=== PATIENT | female | born 1985 | race Two or more races ===

== ENCOUNTER 2019-10-21 16:59 | Outpatient (CLI) | payer MEDICAID ==
--- NOTE | 2019-10-21 18:28 | Non Stress Test Report ---
Non Stress Test Datetime Report Generated by CPN: 10/21/2019 18:27 DEMOGRAPHIC EGA NST: 39.5 INDICATION Indication for Study (NST) Other: IUP @ 39.5 Labor observation VITAL SIGNS Temperature - NST: 98.3 Pulse - NST: 96 RESP - NST: 16 NBPSYS NST: 110 NBPDIA NST: 73 MONITORING Monitor Explained: Monitor Explained; Test Explained; Patient Verbalized Understanding Time on Monitor: 10/21/2019 17:14 Time off Monitor: 10/21/2019 18:11 NST Duration: 57 NST INTERVENTIONS NST Interventions: PO Hydration; Reposition Patient Physician Notified NST: Dr. Mejía BABY A: [id number] BABY A Movement : Present Contraction Frequency : 1-6 FHR Baseline : 130 Accelerations : 15X15 Decelerations : None Variability : Moderate 6-25bpm NST Review: Meets Criteria for Reactive NST NST Review and Verified By : Margarita Washington RN NST Results: Reactive NST REPORT Report Trigger: Send Report
[2019-10-21 18:44] LABS: APPEARANCE,URINE CLEAR; BILIRUBIN,URINE NEGATIVE (NEGATIVE); COLOR,URINE YELLOW; GLUCOSE, URINE NEGATIVE (NEGATIVE); KETONES,URINE TRACE mg/dL (NEGATIVE); LEUKOCYTE ESTERASE,URINE TRACE (NEGATIVE); NITRITE,URINE NEGATIVE (NEGATIVE); PROTEIN,URINE NEGATIVE (NEGATIVE); URINE SPECIFIC GRAVITY 1.008; UROBILINOGEN,URINE NEGATIVE mg/dL (<2.0)
[2019-10-21 19:01] LABS: URINE AMPHETAMINES SCREEN NEGATIVE; URINE BARBITURATES SCREEN NEGATIVE; URINE BENZODIAZEPINES SCREEN NEGATIVE; URINE COCAINE SCREEN NEGATIVE; URINE MARIJUANA (THC) SCREEN NEGATIVE; URINE METHADONE SCREEN NEGATIVE; URINE PHENCYCLIDINE SCREEN NEGATIVE
== END 2019-10-21 19:09 | disposition home or self-care (01) ==
LOC: LC 16:59
PROVIDERS: ATTEND Obstetrics & Gynecology Gynecology
DX: O47.1 False labor at or after 37 completed weeks of gestation (principal); Z3A.39 39 weeks gestation of pregnancy; Z88.0 Allergy status to penicillin
CPT/HCPCS: 59025; 80307; 81005; 84112

== ENCOUNTER 2019-10-23 04:13 | Inpatient (IN) | payer MEDICAID ==
[2019-10-23 05:18] LABS: APPEARANCE,URINE CLOUDY; BILIRUBIN,URINE NEGATIVE (NEGATIVE); COLOR,URINE YELLOW; GLUCOSE, URINE NEGATIVE (NEGATIVE); KETONES,URINE 80 mg/dL (NEGATIVE); LEUKOCYTE ESTERASE,URINE LARGE (NEGATIVE); NITRITE,URINE NEGATIVE (NEGATIVE); PROTEIN,URINE 30 mg/dL (NEGATIVE); URINE SPECIFIC GRAVITY 1.012; UROBILINOGEN,URINE NEGATIVE mg/dL (<2.0)
[2019-10-23 05:36] LABS: URINE AMPHETAMINES SCREEN NEGATIVE; URINE BARBITURATES SCREEN NEGATIVE; URINE BENZODIAZEPINES SCREEN NEGATIVE; URINE COCAINE SCREEN NEGATIVE; URINE MARIJUANA (THC) SCREEN NEGATIVE; URINE METHADONE SCREEN NEGATIVE; URINE PHENCYCLIDINE SCREEN NEGATIVE
[2019-10-23] MEDS ORDERED: PROMETHAZINE HCL INJ 25 MG/1 ML VIAL ONE (07:59)
[2019-10-23] MEDS ORDERED: NALBUPHINE HCL INJ 10 MG/1 ML AMPULE ONE (07:59)
--- NOTE | 2019-10-23 08:01 | Admission Physical ---
Datetime Report Generated by CPN: 10/23/2019 08:01 CURRENT ADMISSION Chief Complaint: Uterine Contractions Indication for Induction: Not Applicable Admit Impression : Term, Intrauterine ; Active Labor Admit Plan: Admit to Unit; Initiate Labor Protocol ALLERGIES Medication Allergies: Yes Medication Allergies: Penicillins (10/23/2019) Latex: No Latex Allergies Food Allergies: None Environmental Allergies: None OBSTETRICAL HISTORY EDC: 10/23/2019 00:00 : 4 Para: 2 Term: 2 : 0 SAB: 1 IAB: 0 Ectopic: 0 Livin Cesareans: 0 VBACs: 0 Multiple Births: 0 Gestational Diabetes: Yes Rh Sensitization: No Incompetent Cervix: No VIVIANA: No Infertility: No ART Treatment: No Uterine Anomaly: No IUGR: No Hx Previous C/S: No Macrosomia: No Hx Loss/Stillborn: No PIH: No Hx : No Placenta Previa/Abruption: No Depression/PP Depression: No PTL/PROM: No Post Hemorrhage: No Current Procedures: Ultrasound Obstetrical History Comments: G1- viable boy 2008 G2- 2011 G3- viable baby girl G4- Current SEE RECORDS Alcohol: No Marijuana : No Cocaine: No Other Illicit Drugs: No Cigarettes: Never Smoker. [id number] MEDICAL HISTORY Diabetes: Yes Diabetes Type: Gestational Diabetes Blood Transfusion: No Pulmonary Disease (Asthma, TB): No Breast Disease: No Hypertension: No Occupational Psychologist Surgery: No Heart Disease: No Hosp/Surgery: Yes Autoimmune Disorder: No Anesthetic Complications: No Kidney Disease: No Abnormal Pap Smear: No Neuro/Epilepsy: No Psychiatric Disorders: No Other Medical Diseases: No Hepatitis/Liver Disease: No Significant Family History: No Varicosities/Phlebitis: No Trauma/Violence : No Thyroid Dysfunction: No Medical History Comments: childbirth INFECTIOUS HISTORY Gonorrhea: No Genital Herpes: No Chlamydia: No Tuberculosis: No Syphilis: No Hepatitis: No HIV/AIDS Exposure: No Rash or Viral Illness: No HPV: 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 PHYSICAL EXAM General: Normal HEENT: Normal Neurologic: Normal Thyroid: Normal Heart: Normal Lungs: Normal Breast: Normal Back: Normal Abdomen: Normal Genitourinary Exam: Normal Extremities: Normal DTRs: Normal Pelvic Type: Adequate Vital Signs: Reviewed; Within Normal Limits VAGINAL EXAM Dilatation: 6 Effacement: 90 Station: -2 MEMBRANES Pooling: Negative FETUS A EGA: 40.0 Monitoring: External US FHR- Baseline: 140 Variability: Moderate 6-25bpm Accelerations: 15X15 Decelerations: None FHR Category: Category I Estimated Weight (gm): 3800 Presentation: Vertex PLANS FOR LABOR AND DELIVERY Labor and Delivery: None Pain Management: Epidural Feeding Preference: Breast Benefit of Breast Feed Discussed: Yes Circumcision: Yes INFORMED CONSENT Signature: with User ID: Marilee
[2019-10-23] MEDS ORDERED: OXYTOCIN 10 UNIT/ML VIAL ONE (08:06)
[2019-10-23] MEDS ORDERED: LIDOCAINE 1% INJ-PF (10 MG/ML) 30 ML SDV ONE (08:06)
[2019-10-23] MEDS ORDERED: OXYTOCIN/0.9 % SODIUM CHLORIDE 30 UNIT/500 ML RTUINJ ONE ×2 (08:06→13:03)
[2019-10-23] MEDS ORDERED: MISOPROSTOL 0.2 MG TABLET ONE (08:06)
[2019-10-23] MEDS: RINGERS SOLUTION,LACTATED 1,000 ML IV PRN ×2 (08:13→09:21)
[2019-10-23] MEDS ORDERED: BUPIVACAINE HCL 0.25 % INJ/PF (2.5 MG/1 ML) 30 ML VIAL ONE (08:42)
[2019-10-23] MEDS ORDERED: FENTANYL CITRATE INJ/PF 100 MCG/2 ML AMPUL ONE (08:42)
[2019-10-23] MEDS ORDERED: EPHEDRINE SULFATE INJ 50 MG/1 ML AMPULE ONE (08:42)
[2019-10-23] MEDS ORDERED: FENTANYL/BUPIVACAINE/NS/PF 300 MCG/150 ML RTUINJ EPI ONE (08:42)
[2019-10-23 08:44] LABS: ABSOLUTE LYMPHOCYTES (AUTO) 1.2 10^3/uL (0.5-4.7); ABSOLUTE MONOCYTES (AUTO) 0.6 10^3/uL (0.1-1.4); ABSOLUTE NEUT (AUTO) 8.6 10^3/uL (1.7-8.2); BASOPHILS % (AUTO) 0.3 % (0-2); EOSINOPHILS % (AUTO) 0.2 % (0-6); HEMATOCRIT 31.6 % (36.0-47.0); HEMOGLOBIN 10.4 g/dL (12.0-15.5); MEAN CORPUSCULAR HEMOGLOBIN 26.2 pg (27.0-33.4); MEAN CORPUSCULAR VOLUME 79 fl (80-97); MONOCYTES % (AUTO) 6.1 % (3-13); PLATELET COUNT 216 10^3/uL (150-450); RED BLOOD COUNT 3.99 10^6/uL (3.72-5.28); SEGMENTED NEUTROPHILS % (AUTO) 82.4 % (42-78); TOTAL CELLS COUNTED % (AUTO) 100 %; WHITE BLOOD COUNT 10.5 10^3/uL (4.0-10.5)
[2019-10-23] MEDS ORDERED: ROPIVACAINE HCL 0.2% INJ/PF (2 MG/ML) 20 ML SDV ONE (08:45)
[2019-10-23] MEDS ORDERED: PHENYLEPHRINE HCL INJ/PF 10 MG/1 ML SDV ONE (09:28)
[2019-10-23] MEDS ORDERED: MAGNESIUM HYDROXIDE SUSP 30 ML UDCUP PO PRN (13:21)
[2019-10-23] MEDS ORDERED: MEASLES,MUMPS&RUBELLA VACC/PF 0.5 ML VIAL SUBCUT PRN (13:21)
[2019-10-23] MEDS ORDERED: NA PHOS,M-B/NA PHOS,DI-BA (ADULT) 133 ML ENEMA PR PRN (13:21)
[2019-10-23] MEDS ORDERED: PROMETHAZINE HCL INJ 25 MG/1 ML VIAL IV PRN (13:21)
[2019-10-23] MEDS ORDERED: GLYCERIN/WITCH HAZEL LEAF 1 EACH MED..WIPE TP PRN (13:21)
[2019-10-23] MEDS ORDERED: PSEUDOEPHEDRINE HCL 30 MG TABLET PO PRN (13:21)
[2019-10-23] MEDS ORDERED: DIPH/PERTUSS(ACELL)/TETANUS VAC/PF 0.5 ML SYR (>=10YO) IM PRN (13:21)
[2019-10-23] MEDS ORDERED: ACETAMINOPHEN WITH CODEINE #3 TABLET PO PRN ×2 (13:21)
[2019-10-23] MEDS ORDERED: BENZOCAINE/MENTHOL AEROSOL SPRAY 56 ML TOP PRN (13:21)
[2019-10-23] MEDS ORDERED: PROMETHAZINE HCL 25 MG TABLET PO PRN (13:21)
[2019-10-23] MEDS ORDERED: DIBUCAINE 1% OINTMENT 28 GM TP PRN (13:21)
[2019-10-23] MEDS ORDERED: OXYTOCIN/0.9 % SODIUM CHLORIDE 30 UNIT/500 ML RTUINJ IV PRN (13:21)
[2019-10-23] MEDS ORDERED: ZOLPIDEM TARTRATE 5 MG TABLET PO PRN (13:21)
[2019-10-23] MEDS ORDERED: PROMETHAZINE HCL 25 MG SUPP.RECT PR PRN (13:21)
[2019-10-23] MEDS ORDERED: ACETAMINOPHEN 650 MG SUPP.RECT PR PRN (13:21)
[2019-10-23] MEDS ORDERED: DIPHENHYDRAMINE HCL 25 MG CAPSULE PO PRN (13:21)
[2019-10-23] MEDS ORDERED: IBUPROFEN 800 MG TABLET ONE (14:40)
[2019-10-23] MEDS: IBUPROFEN 800 MG TABLET PO SCH ×2 (14:41→21:29)
--- NOTE | 2019-10-23 15:02 | Warning Signs in Babies ---
VOD Warning Signs Datetime Report Generated by N: 10/23/2019 15:02 VOD#[id number] -Warning Signs in Babies: Viewed with Parent(s)/Family (10/23/2019 15:02:Aroldo Joaquin RN)
--- NOTE | 2019-10-23 16:33 | Delivery Summary ---
Del Sum A-C Datetime Report Generated by CPN: 10/23/2019 16:33 DELIVERY PERSONNEL DELIVERY PERSONNEL: [id number] Delivery Doctor:: Amna Aguilera MD Labor and Delivery Nurse:: Aroldo Joaquin RN Nursery Nurse:: Yue Ayers RN Retail Sales Teammate/DRAW FRAME OPERATOR: Adriana Ross, ST MATERNAL INFORMATION Delivery Anesthesia: Epidural Medications After Delivery: Pitocin 30 Units in 500ml NS/D5W; Cytotec 1000mcg Per Rectum/Vagina Estimated Blood Loss (ml): 550 Delivery QBL: 550 Maternal Complications: None Provider Comments: isabelwi vaccuum placed x 2 with 1 PO for poor maternal effort LABOR SUMMARY EDC: 10/23/2019 00:00 No. Babies in Womb: 1 Attempted: No Labor Anesthesia: Epidural LABOR INFORMATION Reason for Induction: Not Applicable Onset of Labor: 10/23/2019 07:57 Complete Dilatation: 10/23/2019 12:36 Oxytocin: N/A Group B Beta Strep: Negative Antibiotics # of Doses: 0 Antibiotics Time of Last Dose: n/a Name of Antibiotic Given: n/a Steroids Given: None Reason Steroids Not Administered: Not Applicable MEMBRANES Membranes Rupture Method: Artificial Rupture of Membranes: 10/23/2019 10:21 Length of Rupture (hr): 2.63 Amniotic Fluid Color: Clear Amniotic Fluid Amount: Small Amniotic Fluid Odor: Normal STAGES OF LABOR Stage 1 hr: 4 Stage 1 min: 39 Stage 2 hr: 0 Stage 2 min: 23 Stage 3 hr: 0 Stage 3 min: 3 Total Time in Labor hr: 5 Total Time in Labor min: 5 VAGINAL DELIVERY Episiotomy: None Laceration #1: Perineal Laceration Extension #1: Second Degree Laceration Repair: Yes Laceration Repair Note: 2-0 chromic repair in normal fashion running locked stitch with subcutaneous skin repair. Sponge Count Correct: Yes Sharps Count Correct: Yes CSECTION DELIVERY Primary Indication: N/A Secondary Indication: N/A CSection Incidence: N/A Labor: N/A Elective: N/A CSection Incision: N/A BABY A INFORMATION Delivery Date/Time: 10/23/2019 12:59 Method of Delivery: Vaginal Nurse Controlled Delivery: No Born in Route : No : N/A Forceps: N/A Vacuum Extraction: Successful Shoulder Dystocia : No ASSISTED DELIVERY BABY A Vacuum Number of Pulls: 2 Vacuum Number of PopOffs: 1 Reduce Pressure btwn Ctx: Yes Vacuum Tube Coremaker: kiwi Total Time Vacuum Applied: 1 minute PRESENTATION/POSITION BABY A Presentation: Cephalic Cephalic Presentation: Vertex Vertex Position: Left Occipital Anterior Breech Presentation: N/A PLACENTA INFORMATION BABY A Placenta Delivery Time : 10/23/2019 13:02 Placenta Method of Delivery: Spontaneous Placenta Status: Delivered SCORES BABY A Heart Rate 1 min: >100 bpm Resp Effort 1 min: Good Cry Reflex Irritability 1 min: Cough or Sneeze or Pulls Away Muscle Tone 1 min: Active Motion Color 1 min: Blue/Pale Resuscitation Effort 1 min: Tactile Stimulation SCORE 1 MIN: 8 Heart Rate 5 min: >100 bpm Resp Effort 5 min: Good Cry Reflex Irritability 5 min: Cough or Sneeze or Pulls Away Muscle Tone 5 min: Active Motion Color 5 min: Body [place], Extremities Blue Resuscitation Effort 5 min: N/A SCORE 5 MIN: 9 INFORMATION BABY A Gestational Age at Delivery: 40.0 Gestational Status: Full Term- 39- 40.6 Weeks Outcome : Liveborn Condition : Stable Infant Sex: Male IDENTIFICATION BABY A Verification Date/Time: 10/23/2019 14:26 ID Band Number: [id number] Mother's Name Verified: Yes RN Verifying : TMartin,RN Additional Verifying Personnel: MJorge,RN WEIGHT/LENGTH BABY A Birthweight (gm): 3553 Infant Weight (lb): 7 Weight (oz): 13 Infant Length (in): 21.00 Length (cm): 53.34 CORD INFORMATION BABY A No. Cord Vessels: 3 Nuchal Cord : N/A Cord Blood Taken: Yes-For Eval (Mom's Blood Type - or O+) Suction: None ASSESSMENT BABY A Physical Findings at Delivery: Caput Succedaneum Infant Respirations: Appears Normal Skin to Skin: Yes Skin to Skin Time (min): 5 Director Funeral/ALS Called : No Infant Care By: Kristy Ayers RN Transferred To: Remains with Mother BABY B INFORMATION : N/A SIGNATURES Signature: with User ID: Marilee
[2019-10-23] MEDS: DOCUSATE SODIUM 100 MG CAPSULE PO SCH (17:20)
[2019-10-23] MEDS: FERROUS SULFATE 325 MG TABLET PO SCH (17:20)
[2019-10-23] MEDS: FAMOTIDINE 20 MG TABLET PO SCH (21:29)
[2019-10-24] MEDS: IBUPROFEN 800 MG TABLET PO SCH ×3 (05:08→21:58)
[2019-10-24 07:04] LABS: HEMATOCRIT 22.1 % (36.0-47.0); MEAN CORPUSCULAR HEMOGLOBIN 26.5 pg (27.0-33.4); MEAN CORPUSCULAR HGB CONC 33.4 g/dL (32.0-36.0); MEAN CORPUSCULAR VOLUME 79 fl (80-97); PLATELET COUNT 191 10^3/uL (150-450); RED BLOOD COUNT 2.78 10^6/uL (3.72-5.28); RED CELL DISTRIBUTION WIDTH 18.7 % (11.5-14.0); WHITE BLOOD COUNT 10.2 10^3/uL (4.0-10.5)
[2019-10-24 07:08] LABS: HEMOGLOBIN 7.4 g/dL (12.0-15.5)
--- NOTE | 2019-10-24 09:17 | PDOC PROGRESS REPORT ---
Subjective-OB Progress Note for:: 10/24/19 Subjective: Doing well, no c/o, holding baby, Physical Exam (OB) Vital Signs: Temp Pulse Resp BP Pulse Ox 99.1 F 99 17 96/55 L 95 10/24/19 07:33 10/24/19 07:33 10/24/19 07:33 10/24/19 07:33 10/24/19 07:33 Intake & Output 10/23/19 10/24/19 10/25/19 06:59 06:59 06:59 Intake Total 142 Balance 142 Weight 66.4 kg - PIH/Pre-Eclampsia Clonus: Negative Headache: Absent Epigastric Pain: No Visual Changes: No - Lochia Lochia Amount: Scant < 10 ml Lochia Color: Rubra/Red - Abdomen Description: Tender, Soft Hernia Present: No Fundal Description: Firm, Midline Fundal Height: u/u - u/2 Objective-Diagnostic Laboratory: 10/24/19 06:07 10/23/19 10/24/19 08:32 06:07 WBC 10.2 RBC 2.78 L Hgb 7.4 L D Hct 22.1 L MCV 79 L MCH 26.5 L MCHC 33.4 RDW 18.7 H Plt Count 191 Blood Type O POSITIVE Antibody Screen NEGATIVE Assessment and Plan(PN) - Assessment and Plan (1) Vaginal delivery Is this a current diagnosis for this admission?: Yes - Time Spent with Patient Time with patient: Less than 15 minutes Medications reviewed and adjusted accordingly: Yes - Disposition Anticipated Discharge: Home Within: within 24 hours
[2019-10-24] MEDS: FERROUS SULFATE 325 MG TABLET PO SCH ×2 (10:18→18:30)
[2019-10-24] MEDS: PRENATAL VITAMIN W DHA CAPSULE PO SCH (10:18)
[2019-10-24] MEDS: DOCUSATE SODIUM 100 MG CAPSULE PO SCH ×2 (10:18→18:30)
[2019-10-24] MEDS: SENNOSIDES/DOCUSATE 8.6-50 MG 1 EACH TABLET PO SCH (10:18)
[2019-10-24] MEDS: FAMOTIDINE 20 MG TABLET PO SCH ×2 (10:20→21:58)
[2019-10-25] MEDS: IBUPROFEN 800 MG TABLET PO SCH (05:37)
[2019-10-25 07:31] VITALS: BP 110/70
--- NOTE | 2019-10-25 09:47 | PDOC PROGRESS REPORT ---
Subjective-OB Progress Note for:: 10/25/19 Physical Exam (OB) Vital Signs: Temp Pulse Resp BP Pulse Ox 97.7 F 73 16 110/70 100 10/25/19 07:46 10/25/19 07:46 10/25/19 07:46 10/25/19 07:46 10/25/19 07:46 Intake & Output 10/24/19 10/25/19 10/26/19 06:59 06:59 06:59 Intake Total 142 1850 450 Balance 142 1850 450 Weight 66.4 kg - PIH/Pre-Eclampsia Clonus: Negative Headache: Absent Epigastric Pain: No Visual Changes: No - Lochia Lochia Amount: Scant < 10 ml Lochia Color: Rubra/Red - Abdomen Description: Tender, Soft Hernia Present: No Bowel Sounds: Normoactive Flatus Presence: Present Stool: No Fundal Description: Firm, Midline Fundal Height: u/u - u/2 Objective-Diagnostic Laboratory: 10/24/19 06:07 Assessment and Plan(PN) - Time Spent with Patient Medications reviewed and adjusted accordingly: Yes - Disposition Anticipated Discharge: Home
[2019-10-25] MEDS: SENNOSIDES/DOCUSATE 8.6-50 MG 1 EACH TABLET PO SCH (09:51)
[2019-10-25] MEDS: PRENATAL VITAMIN W DHA CAPSULE PO SCH (09:51)
[2019-10-25] MEDS: FAMOTIDINE 20 MG TABLET PO SCH (09:51)
[2019-10-25] MEDS: FERROUS SULFATE 325 MG TABLET PO SCH (09:51)
[2019-10-25] MEDS: DOCUSATE SODIUM 100 MG CAPSULE PO SCH (09:51)
--- NOTE | 2019-10-25 09:55 | PDOC DISCHARGE SUMMARY ---
Impression - Admit/DC Date/PCP Admission Date/Primary Care Provider: 10/23/19 08:01 Discharge Date: 10/25/19 - Discharge Diagnosis (1) Anemia Is this a current diagnosis for this admission?: Yes (2) Gestational diabetes mellitus Is this a current diagnosis for this admission?: Yes (3) Is this a current diagnosis for this admission?: Yes (4) Vaginal delivery Is this a current diagnosis for this admission?: Yes - Additional Information Resuscitation Status: Full Code Discharge Diet: Regular Discharge Activity: Activity As Tolerated, Balance Activity w/Rest, Pelvic Rest, Slowly Increase Activity, No tub bath Referrals: MARAH SALGADO MD [ACTIVE STAFF] - Prescriptions: Docusate Sodium [Colace 100 mg Capsule] 100 mg PO BID #30 capsule Ferrous Sulfate [Feosol 325 mg Tablet] 325 mg PO BID #60 tablet Home Medications: Vits96/Iron Fum/Folic [ Tablet] 1 each PO DAILY 10/21/19 Docusate Sodium [Colace 100 mg Capsule] 100 mg PO BID #30 capsule 10/25/19 Ferrous Sulfate [Feosol 325 mg Tablet] 325 mg PO BID #60 tablet 10/25/19 HPI Gestational Age: 40 wks Reason(s) for Admission: Onset of Labor Procedures: Ultrasound Intrapartum Procedure(s): Spontaneous Vaginal Delivery Complication(s): Laceration-Perineal Laceration-Degree: 2nd Results Laboratory Results: WBC 10.2 10^3/uL (4.0-10.5) 10/24/19 06:07 RBC 2.78 10^6/uL (3.72-5.28) L 10/24/19 06:07 Hgb 7.4 g/dL (12.0-15.5) L D 10/24/19 06:07 Hct 22.1 % (36.0-47.0) L 10/24/19 06:07 MCV 79 fl (80-97) L 10/24/19 06:07 MCH 26.5 pg (27.0-33.4) L 10/24/19 06:07 MCHC 33.4 g/dL (32.0-36.0) 10/24/19 06:07 RDW 18.7 % (11.5-14.0) H 10/24/19 06:07 Plt Count 191 10^3/uL (150-450) 10/24/19 06:07 Lymph % (Auto) 11.0 % (13-45) L 10/23/19 08:32 [place] % (Auto) 6.1 % (3-13) 10/23/19 08:32 Eos % (Auto) 0.2 % (0-6) 10/23/19 08:32 Baso % (Auto) 0.3 % (0-2) 10/23/19 08:32 Absolute Neuts (auto) 8.6 10^3/uL (1.7-8.2) H 10/23/19 08:32 Absolute Lymphs (auto) 1.2 10^3/uL (0.5-4.7) 10/23/19 08:32 Absolute Monos (auto) 0.6 10^3/uL (0.1-1.4) 10/23/19 08:32 Absolute Eos (auto) 0.0 10^3/uL (0.0-0.6) 10/23/19 08:32 Absolute Basos (auto) 0.0 10^3/uL (0.0-0.2) 10/23/19 08:32 Seg Neutrophils % 82.4 % (42-78) H 10/23/19 08:32 Urine Color YELLOW 10/23/19 04:20 Urine Appearance CLOUDY 10/23/19 04:20 Urine pH 6.0 (5.0-9.0) 10/23/19 04:20 Ur Specific [place] 1.012 10/23/19 04:20 Urine Protein 30 mg/dL (NEGATIVE) H 10/23/19 04:20 Urine Glucose (UA) NEGATIVE mg/dL (NEGATIVE) 10/23/19 04:20 Urine Ketones 80 mg/dL (NEGATIVE) H 10/23/19 04:20 Urine Blood LARGE (NEGATIVE) H 10/23/19 04:20 Urine Nitrite NEGATIVE (NEGATIVE) 10/23/19 04:20 Urine Bilirubin NEGATIVE (NEGATIVE) 10/23/19 04:20 Urine Urobilinogen NEGATIVE mg/dL (<2.0) 10/23/19 04:20 Ur Leukocyte Esterase LARGE (NEGATIVE) H 10/23/19 04:20 Urine Ascorbic Acid NEGATIVE (NEGATIVE) 10/23/19 04:20 Urine Opiates Screen NEGATIVE 10/23/19 04:20 Urine Methadone Screen NEGATIVE 10/23/19 04:20 Ur Barbiturates Screen NEGATIVE 10/23/19 04:20 Ur Phencyclidine Scrn NEGATIVE 10/23/19 04:20 Ur Amphetamines Screen NEGATIVE 10/23/19 04:20 U Benzodiazepines Scrn NEGATIVE 10/23/19 04:20 Urine Cocaine Screen NEGATIVE 10/23/19 04:20 U Marijuana (THC) Screen NEGATIVE 10/23/19 04:20 RPR NONREACTIVE (NONREACTIVE) 10/23/19 08:32 Blood Type O POSITIVE 10/23/19 08:32 Antibody Screen NEGATIVE 10/23/19 08:32 Plan Plan of Treatment: Follow up at [facility] in 4 wks. or prn. Time Spent: Less than 30 Minutes
== END 2019-10-25 13:08 | disposition home or self-care (01) | DRG 807 ==
LOC: LC 04:13 → LR 08:01 → 2S 15:45
PROVIDERS: ADMIT Obstetrics & Gynecology; ATTEND Obstetrics & Gynecology
PROC: 10D07Z6 Extraction of Products of Conception, Vacuum, Via Natural or Artificial Opening (ICD-10-PCS; principal; 2019-10-23)
PROC: 0KQM0ZZ Repair Perineum Muscle, Open Approach (ICD-10-PCS; 2019-10-23)
PROC: 3E0234Z Introduction of Serum, Toxoid and Vaccine into Muscle, Percutaneous Approach (ICD-10-PCS; 2019-10-25)
DX: O24.429 Gestational diabetes mellitus in childbirth, unspecified control (principal); O75.81 Maternal exhaustion complicating labor and delivery; O70.1 Second degree perineal laceration during delivery; Z37.0 Single live birth; Z3A.40 40 weeks gestation of pregnancy; Z88.0 Allergy status to penicillin; Z23 Encounter for immunization; O99.02 Anemia complicating childbirth; D64.9 Anemia, unspecified
CPT/HCPCS: 1967; 36415; 80307; 81005; 85025; 85027; 86592; 86850; 86900; 86901; 90715; 94760; C1758; J2300; J2370; J2550; J2590; J2795; J3010; J3490